=== PATIENT | male | born 1960 | race Caucasian/White ===

== ENCOUNTER 2022-06-19 15:23 | Emergency (ER) | payer BC ==
[~2022-06-19 15:23] MED LIST: EC-NAPROSYN500 MG PO
[2022-06-19] MEDS ORDERED: NAPROXEN500 MG PO (16:09)
== END 2022-06-19 16:30 | disposition home or self-care (01) ==
LOC: ER1 15:23
DX: M77.11 Lateral epicondylitis, right elbow (principal)
CPT/HCPCS: 99283